=== PATIENT | male | born 1965 | race Caucasian/White ===

== ENCOUNTER 2018-08-28 05:40 | Emergency (ER) | payer MEDICAID, OTHER ==
--- NOTE | 2018-08-28 05:43 | EDPHY ---
H & P Time Seen by Provider: 08/28/18 05:41 HPI/ROS: HPI CHIEF COMPLAINT: Environmental cold exposure, dehydration, methamphetamine use. HISTORY OF PRESENT ILLNESS: This is a very pleasant 53-year-old male, he is homeless. He was found sleeping on the sidewalk. He presents emergency room by EMS as he states he is cold. He reports he last did methamphetamine 12 hr ago. He denies any focal medical complaints. Hours request that he is dehydrated requesting something to drink. Upon arrival to the emergency room is , cooperative vital signs are stable. Past Medical History: Asthma Past Surgical History: Denies recent surgery Social History: homeless. Daily methamphetamine use. Family History: Noncontributory ROS REVIEW OF SYSTEMS: 10 Systems were reviewed and negative with the exception of the elements mentioned in the history of present illness. Exam Constitutional nontoxic, triage nursing summary reviewed, vital signs reviewed , awake/alert. Vital signs stable. Not hypothermic. Eyes normal conjunctivae and sclera, EOMI, PERRLA. HENT normal inspection, atraumatic, moist mucus membranes, no epistaxis, neck supple/ no meningismus, no raccoon eyes. Respiratory clear to auscultation bilaterally, normal breath sounds, no respiratory distress, no wheezing. Cardiovascular rate normal, regular rhythm, no murmur, no edema, distal pulses normal. Gastrointestinal soft, non-tender, no rebound, no guarding, normal bowel sounds, no distension, no pulsatile mass. Genitourinary no CVA tenderness. Musculoskeletal no midline vertebral tenderness, full range of motion, no calf swelling, no tenderness of extremities, no meningismus, good pulses, neurovascularly intact. Skin pink, warm, & dry, no rash, skin atraumatic. Neurologic awake, alert and oriented x 3, AAOx3, moves all 4 extremities equally, motor intact, sensory intact, CN II-XII intact, normal cerebellar, normal vision, normal speech. Psychiatric normal mood/affect. Heme/Lymph/Immune no lymphadenopathy. Differential Diagnosis: Includes but is not limited to in a particular order dehydration, cold environmental exposure, hypothermia, methamphetamine abuse Medical Decision Making: Plan for this patient his vital signs are stable. He is not hypothermic will allow him to rest here warm up. He is requesting oral hydration requesting something to drink will provide water and Gatorade. Re-evaluation: Source: Patient, EMS (Adult) Departure - Departure Disposition: Home, Routine, Self-Care Clinical Impression: Dehydration, Methamphetamine abuse Condition: Good Instructions: Dehydration (ED), Methamphetamine Abuse (ED)
[2018-08-28 06:52] VITALS: BP 156/94
== END 2018-08-28 06:45 | disposition home or self-care (01) ==
LOC: EDUNIT#
DX: F15.20 Other stimulant dependence, uncomplicated (principal); J45.909 Unspecified asthma, uncomplicated; E86.9 Volume depletion, unspecified; Z59.0 Homelessness

== ENCOUNTER 2018-08-30 01:50 | Emergency (ER) | payer MEDICAID, OTHER ==
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
[2018-08-30 02:04] VITALS: BP 129/86
[2018-08-30] MEDS ORDERED: risperiDONE 2 MG TAB PO ONE (02:30)
[2018-08-30] MEDS ORDERED: SERTRALINE HCL 100 MG TAB PO ONE (02:30)
[2018-08-30] MEDS ORDERED: PHENYTOIN SODIUM EXTENDED 100 MG CAP PO ONE (02:30)
== END 2018-08-30 02:37 ==
LOC: EDUNIT#
DX: F15.10 Other stimulant abuse, uncomplicated (principal); Z59.0 Homelessness; J44.9 Chronic obstructive pulmonary disease, unspecified; E03.9 Hypothyroidism, unspecified

== ENCOUNTER 2018-10-11 13:37 | Observation (INO) | payer MEDICAID ==
[2018-10-11] MEDS ORDERED: HYDROmorphONE/DILAUDID 2 MG/ML INJ IVP ONE (13:55)
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
[2018-10-11] MEDS ORDERED: LORazepam 2 MG/ML INJ IVP ONE (13:56)
[2018-10-11] MEDS ORDERED: NS 1,000 ML IV ONE (15:03)
[2018-10-11 15:29] LABS: PLATELET COUNT 182 10^3/uL (150-400)
[2018-10-11 15:38] LABS: INR 0.98 (0.83-1.16); PROTIME(PATIENT) 13.2 SEC (12.0-15.0)
[2018-10-11] MEDS ORDERED: IOPAMIDOL (ISOVUE-300) 100 ML BTL ONE (15:45)
[2018-10-11] MEDS ORDERED: ACETAMINOPHEN 325 MG TAB PO PRN (17:55)
[2018-10-11] MEDS ORDERED: LORazepam 2 MG/ML INJ IVP PRN ×2 (17:55→18:37)
[2018-10-11] MEDS ORDERED: ONDANSETRON DISINTEGRATING 4 MG TAB PO PRN (17:55)
[2018-10-11] MEDS ORDERED: ONDANSETRON 4 MG/2 ML VIAL IVP PRN (17:55)
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
[2018-10-11] MEDS ORDERED: FLUMAZENIL 0.5 MG/5 ML MDV IVP PRN (18:37)
[2018-10-11] MEDS ORDERED: ALBUTEROL 60 PUFFS/8 GM MDI IH PRN (18:40)
[2018-10-11] MEDS: THIAMINE HCL 500 MG in NS 100 ML IV SCH (19:41)
[2018-10-11] MEDS: ACETAMINOPHEN 500 MG TAB PO SCH (20:32)
[2018-10-11] MEDS: oxyCODONE IR 5 MG TAB PO PRN (20:32)
[2018-10-11] MEDS: FLUTICASONE/SALMETER 250/50MCG DISKUS IH SCH (21:28)
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
[2018-10-12] MEDS ORDERED: LEVOTHYROXINE 150 MCG TAB PO SCH (06:00)
[2018-10-12] MEDS: ACETAMINOPHEN 500 MG TAB PO SCH ×2 (06:10→12:48)
[2018-10-12] MEDS: FLUTICASONE/SALMETER 250/50MCG DISKUS IH SCH (07:45)
[2018-10-12] MEDS: oxyCODONE IR 5 MG TAB PO PRN ×3 (07:46→12:48)
[2018-10-12] MEDS: THIAMINE HCL 500 MG in NS 100 ML IV SCH (08:04)
[2018-10-12 08:49] VITALS: BP 137/85
[2018-10-12] MEDS ORDERED: ENOXAPARIN 40 MG/0.4 ML SYR SC SCH (09:00)
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
--- NOTE | 2018-10-12 09:47 | SOAPPROG ---
SOAP Progress Note Assessment/Plan: Assessment: R scapula fx Plan: nwjens huanging PTOT follow up with me in 10 days 10/12/18 09:47 Subjective: pain in shoulder on R Objective: Vital Signs Temp Pulse Resp BP Pulse Ox 36.9 C 107 H 20 137/85 H 89 L 10/12/18 08:00 10/12/18 08:00 10/12/18 08:00 10/12/18 08:00 10/12/18 08:00 10/11/18 10/12/18 10/13/18 05:59 05:59 05:59 Intake Total 1550 Balance 1550 PT 13.2 SEC (12.0-15.0) 10/11/18 15:20 INR 0.98 (0.83-1.16) 10/11/18 15:20 R shoulder ttp ICD10 Worksheet Patient Problems: Problems Problem Status Onset At risk for inadequate pain control Acute Methamphetamine abuse Acute Scapular fracture Acute
--- NOTE | 2018-10-12 10:32 | ASMTLACE ---
MELISSA Length of stay for Answers: 1 day current admission Acuity / Level of Answers: No Care: Did the patient have an inpatient admission? Comorbidities - select Answers: Other Notes: Hep C; Hypothyroid all that apply # of Emergency department Answers: 3-4 visits in the last 6 months Social determinants Answers: History of substance abuse (ETOH, street drugs, prescription drugs, etc.) Homelessness (street, senior care) Score: 11 Date Signed: 10/12/2018 10:31 AM Electronically Signed By:Nicolette Christensen RN
--- NOTE | 2018-10-12 10:33 | ASMTDCNOTE ---
Case Management Discharge Discharge Order Complete? Answers: Yes Patient to Obtain Answers: Independently Medications Discharge Comments Notes: Patient declined fdc bed on numerous occasions. He sleeps at a camp. I provided him with pants and a hat. No other needs. Date Signed: 10/12/2018 10:33 AM Electronically Signed By:Nicolette Christensen RN
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
[2018-10-14] MEDS ORDERED: THIAMINE HCL 100 MG TAB PO SCH (09:00)
== END 2018-10-12 12:53 | disposition home or self-care (01) ==
LOC: EDUNIT# → F3N 18:39
PROVIDERS: ADMIT Internal Medicine; ATTEND Internal Medicine
PROC: HZ2ZZZZ Detoxification Services for Substance Abuse Treatment (ICD-10-PCS; principal; 2018-10-11)
DX: S42.114A Nondisplaced fracture of body of scapula, right shoulder, initial encounter for closed fracture (principal); S42.144A Nondisplaced fracture of glenoid cavity of scapula, right shoulder, initial encounter for closed fracture; V13.4XXA Pedal cycle driver injured in collision with car, pick-up truck or van in traffic accident, initial encounter; Y92.414 Local residential or business street as the place of occurrence of the external cause; Y93.55 Activity, bike riding; Y99.8 Other external cause status; F15.120 Other stimulant abuse with intoxication, uncomplicated; F10.10 Alcohol abuse, uncomplicated; B18.2 Chronic viral hepatitis C; F17.210 Nicotine dependence, cigarettes, uncomplicated; E03.9 Hypothyroidism, unspecified; J44.9 Chronic obstructive pulmonary disease, unspecified; R91.8 Other nonspecific abnormal finding of lung field; Z59.0 Homelessness
CPT/HCPCS: 70450; 71046; 71260; 72040; 72125; 73010; 73030; 74177; 96361; 96372; 96374; 96375; 96376; 97161; 97165; 99285; G0378; G8978; G8979; 80305; G0480; J1170; J1650; J2060; J3411; Q9967

== ENCOUNTER 2018-12-13 14:26 | Emergency (ER) | payer MEDICAID ==
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
[2018-12-13 16:06] VITALS: BP 133/89
== END 2018-12-13 16:06 | disposition home or self-care (01) ==
LOC: EDUNIT#
PROC: 2W3EX1Z Immobilization of Right Hand using Splint (ICD-10-PCS; principal; 2018-12-13)
DX: S62.390A Other fracture of second metacarpal bone, right hand, initial encounter for closed fracture (principal); Y04.8XXA Assault by other bodily force, initial encounter; Y92.9 Unspecified place or not applicable; Y99.9 Unspecified external cause status; Y93.9 Activity, unspecified

== ENCOUNTER 2019-02-04 17:10 | Emergency (ER) | payer MEDICAID ==
--- NOTE | 2019-02-04 17:14 | EDPHY ---
H & P Time Seen by Provider: 02/04/19 17:14 - Personal History Tetanus Vaccine Date: 2014 - Medical/Surgical History Hx Asthma: Yes Hx Chronic Respiratory Disease: No Hx Diabetes: No Hx Cardiac Disease: No Hx Renal Disease: No Hx Cirrhosis: No Hx Alcoholism: No Hx HIV/AIDS: No Hx Splenectomy or Spleen Trauma: No Other PMH: HYPOTHYROIDISM, METH, ASTHMA, subdural hematoma WITH SUR, MRSA WITH SURG RIGHT SHOULDER 2011, APPY, TONSILS, EPILEPSY - Social History Smoking Status: Heavy smoker Constitutional: Initial Vital Signs Temperature (C) 37.2 C 02/04/19 17:18 Heart Rate 102 H 02/04/19 17:18 Respiratory Rate 18 02/04/19 17:18 Blood Pressure 155/88 H 02/04/19 17:18 O2 Sat (%) 98 02/04/19 17:18 O2 Delivery Mode Room Air Allergies/Adverse Reactions: bee venom protein (honey bee) Allergy (Verified 02/04/19 17:15) Home Medications: Medication Instructions Recorded Albuterol [Proventil Inhaler HFA 1 - 2 puffs IH Q4H PRN #1 mdi 08/30/18 (*)] Fluticasone/Salmeter 250/50Mcg 1 puffs IH BID #1 disk 08/30/18 [Advair 250/50 (*)] Levothyroxine [Synthroid 150 mcg 150 mcg PO DAILY06 #30 tab 08/30/18 (*)] Phenytoin Sodium Extended 300 mg PO HS #30 cap 08/30/18 [Dilantin (*)] Sertraline HCl [Zoloft 50mg (*)] 150 mg PO HS #90 tab 08/30/18 risperiDONE [Risperdal] 6 mg PO HS #60 tablet 08/30/18 Acetaminophen [Tylenol ES 500 mg 1,000 mg PO Q8 tab 10/12/18 (*)] PHENOBARBITAL 02/04/19 Medical Decision Making ED Course/Re-evaluation: CHIEF COMPLAINT: Altered mental status, meth use HISTORY OF PRESENT ILLNESS: The patient is a 53 y/o male with a history of meth abuse arriving via EMS for altered mental status. The patient is a meth user living on the [address]. Patient regularly uses meth and obtains whatever meth is available. Patient was found by bystanders who called EMS system. Patient reports he last used meth this morning but did not use it this afternoon as he wanted to sleep. Patient has had multiple ER visits over the last several years for the same complaint. Patient denies any injuries denies loss of consciousness denies any recent trauma. Patient denies co-ingestion. Patient denies suicidal or homicidal behavior. REVIEW OF SYSTEMS: A comprehensive 10 system review of systems is otherwise negative aside from elements mentioned in the history of present illness and medical decision making. PHYSICAL EXAM: General Appearance: Restless in bed, alert, well hydrated, appropriate, and non -toxic appearing. Head: Atraumatic without scalp tenderness or obvious injury Eyes: Pupils equal, round, reactive to light and accommodation, EOMI, no trauma , no injection. Ears: Clear bilaterally, no perforation, normal landmarks Nose: Atraumatic, no rhinorrhea, clear. Throat: There is no erythema or exudates, no lesions, normal tonsils, mucus membranes moist. Neck: Supple, 2+ carotid upstroke, nontender, no lymphadenopathy. Respiratory: No retractions, no distress, no wheezes, and no accessory muscle use. Lungs are clear to auscultation bilaterally. Cardiovascular: Regular rate and rhythm, no murmurs, rubs, or gallops. Bilateral carotid, radial, dorsalis pedis, and posterior tibial pulses intact. Good capillary refill all extremities. Gastrointestinal: Abdomen is soft, nontender, non-distended, no masses, no rebound, no guarding, no peritoneal signs. Musculoskeletal: Normal active ROM of all extremities, atraumatic. Neurological: Alert, appropriate, and interactive. The patient has normal DTRs and non-focal cranial nerves, motor, sensory, and cerebellar exam. Skin: No rashes, good turgor, no nodules on palpation. PAST MEDICAL HISTORY: Subdural hematoma with surgical evacuation in 1999, hepatitis C, meth use, 2 pack a day smoker SOCIAL HISTORY: Transient, lives in [place], meth use DIAGNOSTICS/PROCEDURES/CRITICAL CARE TIME: Not indicated. DIFFERENTIAL DIAGNOSIS: The differential diagnosis for the patient's altered mental status included but was not limited to hypoglycemia, infectious process, electrolyte abnormality, head injury, neurologic process, anemia, cardiac process, and intoxicants. MEDICAL DECISION MAKING: The patient is a 53 y/o male with a history of meth abuse arriving via EMS for altered mental status. However, this patient is not altered on my exam. He is answering questions appropriately. Patient is very restless in bed and I suspect he is withdrawing from meth as he last used it this morning and used more than normal yesterday. He did not use meth this afternoon as he wanted to "sleep". Labs ordered; 1mg IV Ativan, 4mg IV Zofran, and 1L IV NS administered. I serially examined this patient since the patient's arrival here in the emergency department. The patient continues to become more and more sober with each examination. Additional 1L IV NS administered. 1944: I serially questioned the patient and the patient's story given initially has not changed. The patient still denies any trauma or any head injury. At this point, the patient is walking the department freely and is clinically sober. We're discharging the patient to the [facility] in stable condition. - Data Points Laboratory Results: 02/04/19 17:32 POC Hgb 13.3 gm/dL L gm/dL (13.7-17.5) POC Hct 39 % L % (40-51) POC Sodium 140 mEq/L mEq/L (135-145) POC Potassium 3.8 mEq/L mEq/L (3.3-5.0) POC Chloride 107 mEq/L mEq/L (97-110) POC Total CO2 17 mEq/L L mEq/L (22-31) POC BUN 24 mg/dL H mg/dL (7-23) POC Creatinine 1.4 mg/dL H mg/dL (0.7-1.3) POC Glucose 87 mg/dL mg/dL (70-100) Medications Given: Discontinued Medications Sodium Chloride (Ns) 1,000 mls @ 0 mls/hr IV EDNOW ONE; Wide Open PRN Reason: Protocol Stop: 02/04/19 17:19 Last Admin: 02/04/19 17:24 Dose: 1,000 mls Sodium Chloride (Ns) 1,000 mls @ 0 mls/hr IV ONCE ONE; Wide Open PRN Reason: Protocol Stop: 02/04/19 18:23 Last Admin: 02/04/19 18:24 Dose: 1,000 mls Lorazepam (Ativan Injection) 1 mg IVP EDNOW ONE Stop: 02/04/19 17:19 Last Admin: 02/04/19 17:24 Dose: 1 mg Ondansetron HCl (Zofran) 4 mg IVP EDNOW ONE Stop: 02/04/19 17:19 Last Admin: 02/04/19 17:26 Dose: 4 mg Point of Care Test Results: Chemistry 02/04/19 17:32 POC Sodium 140 mEq/L mEq/L (135-145) POC Potassium 3.8 mEq/L mEq/L (3.3-5.0) POC Chloride 107 mEq/L mEq/L (97-110) POC Total CO2 17 mEq/L L mEq/L (22-31) POC BUN 24 mg/dL H mg/dL (7-23) POC Creatinine 1.4 mg/dL H mg/dL (0.7-1.3) POC Glucose 87 mg/dL mg/dL (70-100) ISTAT H&H 02/04/19 17:32 POC Hgb 13.3 gm/dL L gm/dL (13.7-17.5) POC Hct 39 % L % (40-51) Departure - Departure Disposition: Home, Routine, Self-Care Clinical Impression: Methamphetamine abuse Condition: Good Instructions: Methamphetamine Abuse (ED) Additional Instructions: 1. Please refrain from abusing meth. 2. Return to the emergency department immediately for fever, vomiting, confusion , headache, abdominal pain or other worsening of condition. 3. Followup with your primary care physician within 72 hours for reevaluation. Referrals: [facility],. [Clinic] - As per Instructions Report Scribed for: Timothy Asif Report Scribed by: Cristina Harding Date of Report: 02/04/19 Time of Report: 17:15
[2019-02-04] MEDS ORDERED: NS 1,000 ML IV ONE ×2 (17:18→18:22)
[2019-02-04] MEDS ORDERED: LORazepam 2 MG/ML INJ IVP ONE (17:18)
[2019-02-04] MEDS ORDERED: ONDANSETRON 4 MG/2 ML VIAL IVP ONE (17:18)
[2019-02-04 20:01] VITALS: BP 136/76
== END 2019-02-04 20:02 | disposition home or self-care (01) ==
LOC: EDUNIT#
DX: F15.20 Other stimulant dependence, uncomplicated (principal); E86.9 Volume depletion, unspecified
CPT/HCPCS: 82435-PO; 82565-PO; 82947-PO; 84132-PO; 84295-PO; 84520-PO; 85014-ER; 96374; J2060; J2405

== ENCOUNTER 2019-02-04 20:09 | Emergency (ER) | payer MEDICAID ==
[2019-02-04 20:16] VITALS: BP 140/68
--- NOTE | 2019-02-04 20:23 | EDPHY ---
H & P Stated Complaint: rt. hand injury Time Seen by Provider: 02/04/19 20:16 - Personal History Current Tetanus Diphtheria and Acellular Pertussis (TDAP): Yes Tetanus Vaccine Date: 2014 - Medical/Surgical History Hx Asthma: Yes Hx Chronic Respiratory Disease: No Hx Diabetes: No Hx Cardiac Disease: No Hx Renal Disease: No Hx Cirrhosis: No Hx Alcoholism: No Hx HIV/AIDS: No Hx Splenectomy or Spleen Trauma: No Other PMH: HYPOTHYROIDISM, METH, ASTHMA, subdural hematoma WITH SUR, MRSA WITH SURG RIGHT SHOULDER 2011, APPY, TONSILS, EPILEPSY - Social History Smoking Status: Heavy smoker Constitutional: Initial Vital Signs Temperature (C) 36.8 C 02/04/19 20:14 Heart Rate 108 H 02/04/19 20:14 Respiratory Rate 16 02/04/19 20:14 Blood Pressure 140/68 H 02/04/19 20:14 O2 Sat (%) 98 02/04/19 20:14 O2 Delivery Mode Room Air Allergies/Adverse Reactions: bee venom protein (honey bee) Allergy (Verified 02/04/19 17:15) Home Medications: Medication Instructions Recorded Albuterol [Proventil Inhaler HFA 1 - 2 puffs IH Q4H PRN #1 mdi 08/30/18 (*)] Fluticasone/Salmeter 250/50Mcg 1 puffs IH BID #1 disk 08/30/18 [Advair 250/50 (*)] Levothyroxine [Synthroid 150 mcg 150 mcg PO DAILY06 #30 tab 08/30/18 (*)] Phenytoin Sodium Extended 300 mg PO HS #30 cap 08/30/18 [Dilantin (*)] Sertraline HCl [Zoloft 50mg (*)] 150 mg PO HS #90 tab 08/30/18 risperiDONE [Risperdal] 6 mg PO HS #60 tablet 08/30/18 Acetaminophen [Tylenol ES 500 mg 1,000 mg PO Q8 tab 10/12/18 (*)] PHENOBARBITAL 02/04/19 Medical Decision Making ED Course/Re-evaluation: CHIEF COMPLAINT: Right hand pain, meth use HISTORY OF PRESENT ILLNESS: The patient is a 53 y/o male with a history of meth abuse complaining of right hand pain. Patient was discharged 20 minutes ago from this hospital. The patient is a meth user living on the [place]. Patient regularly uses meth and obtains whatever meth is available. Patient reports he last used meth this morning but did not use it this afternoon as he wanted to sleep. Patient has had multiple ER visits over the last several years for the same complaint. Patient denies loss of consciousness denies any recent trauma. Patient denies co-ingestion. Patient denies suicidal or homicidal behavior. REVIEW OF SYSTEMS: A comprehensive 10 system review of systems is otherwise negative aside from elements mentioned in the history of present illness and medical decision making. PHYSICAL EXAM: General Appearance: Restless in bed, alert, well hydrated, appropriate, and non -toxic appearing. Head: Atraumatic without scalp tenderness or obvious injury Eyes: Pupils equal, round, reactive to light and accommodation, EOMI, no trauma , no injection. Ears: Clear bilaterally, no perforation, normal landmarks Nose: Atraumatic, no rhinorrhea, clear. Throat: There is no erythema or exudates, no lesions, normal tonsils, mucus membranes moist. Neck: Supple, 2+ carotid upstroke, nontender, no lymphadenopathy. Respiratory: No retractions, no distress, no wheezes, and no accessory muscle use. Lungs are clear to auscultation bilaterally. Cardiovascular: Regular rate and rhythm, no murmurs, rubs, or gallops. Bilateral carotid, radial, dorsalis pedis, and posterior tibial pulses intact. Good capillary refill all extremities. Gastrointestinal: Abdomen is soft, nontender, non-distended, no masses, no rebound, no guarding, no peritoneal signs. Musculoskeletal: Normal active ROM of all extremities, atraumatic. Neurological: Alert, appropriate, and interactive. The patient has normal DTRs and non-focal cranial nerves, motor, sensory, and cerebellar exam. Skin: No rashes, good turgor, no nodules on palpation. PAST MEDICAL HISTORY: Subdural hematoma with surgical evacuation in 1999, hepatitis C, meth use, 2 pack a day smoker SOCIAL HISTORY: Transient, lives in [place], meth use DIAGNOSTICS/PROCEDURES/CRITICAL CARE TIME: Not indicated. DIFFERENTIAL DIAGNOSIS: The differential diagnosis for the patient's hand injury included but was not limited to fracture, ligamentous injury, contusion, muscular strain. MEDICAL DECISION MAKING: The patient is a 53 y/o male with a history of meth abuse complaining of right hand pain. On exam he states his right hand "doesn't really hurt". Patient is malingering and is safe to be discharged. Return precautions provided; patient is comfortable with this plan. Departure - Departure Disposition: Home, Routine, Self-Care Clinical Impression: Right hand pain, Methamphetamine abuse Condition: Good Instructions: Methamphetamine Abuse (ED), Arthralgia (ED) Additional Instructions: Follow-up with your primary doctor within 72 hours. Return to the Emergency Department for fever, chest pain, shortness of breath, increasing pain or other worsening of condition. Referrals: [facility],. [Clinic] - As per Instructions Report Scribed for: Timothy Asif Report Scribed by: Cristina Harding Date of Report: 02/04/19 Time of Report: 20:25
== END 2019-02-04 20:29 | disposition home or self-care (01) ==
DX: M79.641 Pain in right hand (principal); F15.20 Other stimulant dependence, uncomplicated; B19.20 Unspecified viral hepatitis C without hepatic coma; Z59.0 Homelessness